=== PATIENT | female | born 1955 | race Caucasian/White ===

== ENCOUNTER 2024-10-01 09:19 | Outpatient (CLI) | payer OTHER, SELFPAY ==
--- NOTE | 2024-10-01 09:24 | CT_ITS ---
WS: [id number] CT NECK TECHNIQUE: Contrast-enhanced CT of the neck with coronal and sagittal reformatted images. CLINICAL INFORMATION: CHRONIC SIALOADENITIS COMPARISON: None. DLP: 264.[address] scans at [facility] use at least one of these dose optimization techniques: automated exposure control; mA and/or kV adjustment per patient size (includes targeted exams where dose is matched to clinical indication); or iterative reconstruction. FINDINGS: Enlarged RIGHT greater than LEFT parotid glands likely due to chronic sialadenitis. No visualized obstructing parotid duct or submandibular duct calculi. Submandibular glands appear normal. Intraparotid ductal dilatation of the RIGHT parotid gland. A few incidental intraparotid lymph nodes. Prior posto perative changes C5-C7 cervical fusion. Paranasal sinuses are well aerated. Mastoid air cells are well aerated. Normal posterior nasopharynx. Normal parapharyngeal fat. No evidence of supraglottic or glottic mass. Normal posterior nasopharynx. Normal subglottic airway. Multinodular thyroid. Aortic calcification. CT/CT neck w con* [id number] IMPRESSION: 1. No evidence of acute sialoadenitis. 2. Enlarged RIGHT greater than LEFT parotid glands likely due to chronic sialo adenitis. Intraparotid ductal ectasia RIGHT parotid gland. No visualized obstru cting parotid duct calculi. 3. Submandibular glands are normal. 4. No evidence of supraglottic or glottic mass. 5. Micronodular thyroid. 6. Prior cervical fusion. 7. No cervical lymphadenopathy.
[2024-10-01 11:23] LABS: Blood Urea Nitrogen 17 mg/dL (8-23); Glomerular Filtration Rate 71.5 mL/min (90-130)
[2024-10-01] MEDS: iohexol 350 mg/mL 500 mL Btl (per mL) IV (11:30)
== END 2024-10-01 09:20 | disposition home or self-care (01) ==
LOC: RAD 09:22
PROVIDERS: PCP Nurse Practitioner Family; Visit Provider Specialist
DX: K11.23 Chronic sialoadenitis (principal); K11.5 Sialolithiasis; R59.0 Localized enlarged lymph nodes; K11.8 Other diseases of salivary glands; E04.2 Nontoxic multinodular goiter; Z98.1 Arthrodesis status; I70.0 Atherosclerosis of aorta
CPT/HCPCS: 70491; 82565; 84520